=== PATIENT | male | born 1945 | race Caucasian/White ===

== ENCOUNTER 2018-09-19 21:56 | Observation (INO) | payer MEDICAID, OTHER ==
[~2018-09-19] VITALS: Ht 165.1 cm; Wt 70.6 kg
[2018-09-19] MEDS ORDERED: ASPIRIN 81 MG TAB PO STA (22:17)
--- NOTE | 2018-09-19 22:22 | ERD ---
ER Documentation Chief Complaint Chief Complaint referred by pmd for htn. denies pain HPI 72-year-old male with a history of hypertension and diabetes presenting from clinic for chest pain that started around 4 PM today. They did an EKG at the clinic which did not show any acute abnormalities. He was given some pill that he does not know the name of. After that his pain improved. That was just prior to arrival. He states that his chest pain was pressure-like, radiating to his left shoulder and back, with associated shortness of breath and diaphoresis. His pain has been constant for 5 hours until he received that medication. He denies any history of cardiac problems. He is a daily drinker. He is compliant with his medications. ROS All systems reviewed and are negative except as per history of present illness. Allergies Allergies: Coded Allergies: No Known Drug Allergies (Verified Allergy, Unknown, 09/19/18) PMhx/Soc Medical and Surgical Hx: pt denies Medical Hx Hx Cardiac Disorders: Yes (htn, ) Hx Miscellaneous Medical Probl: Yes (Diabetes) Hx Alcohol Use: Yes (Daily) Hx Substance Use: No Hx Tobacco Use: No Smoking Status: Never smoker FmHx Family History: No coronary disease Physical Exam Vitals Vital Signs Date Temp Pulse Resp B/P (MAP) Pulse Ox O2 O2 Flow FiO2 Time Delivery Rate 09/19/18 97 19 154/98 97 Room Air 23:00 (116) 09/19/18 Nasal 22:26 Cannula 09/19/18 97.9 98 20 172/93 99 Room Air 22:13 (119) 09/19/18 97.9 99 20 202/96 99 22:03 (131) Physical Exam Const: No acute distress Head: Atraumatic Eyes: Normal Conjunctiva ENT: Normal External Ears, Nose and Mouth. Neck: Full range of motion. No meningismus. Resp: Clear to auscultation bilaterally Cardio: Regular rate and rhythm, no murmurs. 2+ distal pulses Abd: Soft, non tender, non distended. Normal bowel sounds Skin: No petechiae or rashes Back: No midline or flank tenderness Ext: No cyanosis, or edema Neur: Awake and alert Psych: Normal Mood and Affect Result Diagram: 09/20/18 0613 09/20/18 0614 Results 24 hrs Laboratory Tests Test 09/19/18 22:21 White Blood Count 6.8 10^3/ul Red Blood Count 3.88 10^6/ul Hemoglobin 13.1 g/dl Hematocrit 37.8 % Mean Corpuscular Volume 97.4 fl Mean Corpuscular Hemoglobin 33.8 pg Mean Corpuscular Hemoglobin Concent 34.7 g/dl Red Cell Distribution Width 14.6 % Platelet Count 177 10^3/UL Mean Platelet Volume 8.7 fl Immature Granulocytes % 0.300 % Neutrophils % 63.1 % Lymphocytes % 26.8 % Monocytes % 8.9 % Eosinophils % 0.3 % Basophils % 0.6 % Nucleated Red Blood Cells % 0.0 /100WBC Immature Granulocytes # 0.020 10^3/ul Neutrophils # 4.3 10^3/ul Lymphocytes # 1.8 10^3/ul Monocytes # 0.6 10^3/ul Eosinophils # 0.0 10^3/ul Basophils # 0.0 10^3/ul Nucleated Red Blood Cells # 0.0 10^3/ul Sodium Level 137 mmol/L Potassium Level 3.9 mmol/L Chloride Level 103 mmol/L Carbon Dioxide Level 23 mmol/L Anion Gap 11 Blood Urea Nitrogen 12 mg/dl Creatinine 0.82 mg/dl Est Glomerular Filtrat Rate mL/min mL/min Glucose Level 142 mg/dl Calcium Level 8.4 mg/dl Troponin I < 0.012 ng/ml Current Medications Medications Dose Sig/Prest[place] Start Time Status Last (Trade) Ordered Route PRN Stop Time Admin Dose Reason Admin Aspirin 162 mg ONCE STAT 09/19/18 DC 09/19/18 (Aspirin) PO 22:17 22:25 09/19/18 22:18 Procedures/MDM EMERGENT LABS AND DIAGNOSTIC STUDIES: Lab Results above were reviewed and interpreted by me. CBC: no anemia or evidence of infection CMP: No evidence of clinically significant electrolyte abnormality, acidosis, renal failure, hypoglycemia, liver disease, or biliary obstruction Troponin within normal limits, not indicative of cardiac ischemia 12-lead EKG was interpreted by Daniela Dyson MD: sinus tachycardia at 104 bpm Normal axis Normal intervals No acute ST or T wave changes suggestive of acute ischemia or STEMI. Radiology Results as interpreted by Radiology below were reviewed by Candi Dyson MD: Chest x-ray: No acute abnormalities Initial Nursing notes reviewed. Previous Medical Records requested via the Electronic Health Record. EMERGENCY DEPARTMENT COURSE / MEDICAL DECISION MAKING: Patients symptoms are concerning for a cardiac etiology. Other etiologies considered were PE, aortic dissection, pneumonia, pneumothorax, esophageal rupture. EKG showed no acute ischemia. Initial troponin negative. CXR grossly unremarkable. However patient has an intermediate risk of adverse events. Patient is not safe for discharge and will need inpatient monitoring and further evaluation. Further workup will be deferred to the inpatient team. Accepting Care Team: Current data and ongoing care discussed. Time: Time of admission Primary Provider: Dr. Amos Fernandez Diagnosis: Primary Impression: Chest pain Chest pain type: unspecified Qualified Codes: R07.9 - Chest pain, unspecified Additional Impression: Hypertensive urgency Condition: Stable EKTONYA VELASQUEZ MD Sep 19, 2018 22:22
--- NOTE | 2018-09-19 23:51 | HP ---
Date/Time of Note Date/Time of Note DATE: 09/19/18 TIME: 23:51 Assessment/Plan VTE Prophylaxis SCD applied (from Nsg): Yes Pharmacological prophylaxis: NA/contraindicated Pharm contraindication: low risk/ambulating Lines/Catheters IV Catheter Type (from Nrsg): Saline Lock Assessment/Plan Hospital Course This is a 72-year-old male being admitted to the telemetry floor for observation for: #1. Chest pain: Rule out ACS versus secondary to uncontrolled hypertension. Will check cardiac enzymes x3, the first that was negative. Will check an echocardiogram. Will monitor patient blood pressure closely. Did present with blood pressures in the 200 systolic. I will start him on lisinopril 10 mg p.o. daily. Will need to confirm patient's home medications. #2 hypertension: Patient did present with blood pressures in the 200s, which did subsequently start to improve on their own without intervention. We will start the patient on lisinopril 10 mg p.o. daily Given his underlying history of diabetes mellitus. We will titrate the meds as indicated. #3 diabetes mellitus: We will check a hemoglobin A1c, will need to confirm patient's home medications. mild insulin sliding scale. We will check hemoglobin A 1C, lipid panel, TSH #4 heavy alcohol use: Patient does report that he drinks 4-5 beers on a nightly basis. Currently does not appear to be jittery or anxious. Will give a banana bag, PRN Ativan for any symptoms of withdrawal, thiamine, folate, MVI #5 DVT GI verbalizes: SCDs, no GI prophylaxis indicated Further treatment strategy will be implemented as per the clinical course. Result Diagram: 09/19/181 09/19/18 2221 Results 24hrs Laboratory Tests Test 09/19/18 22:21 White Blood Count 6.8 Red Blood Count 3.88 L Hemoglobin 13.1 L Hematocrit 37.8 L Mean Corpuscular Volume 97.4 Mean Corpuscular Hemoglobin 33.8 H Mean Corpuscular Hemoglobin Concent 34.7 Red Cell Distribution Width 14.6 H Platelet Count 177 Mean Platelet Volume 8.7 Immature Granulocytes % 0.300 Neutrophils % 63.1 Lymphocytes % 26.8 Monocytes % 8.9 Eosinophils % 0.3 Basophils % 0.6 Nucleated Red Blood Cells % 0.0 Immature Granulocytes # 0.020 Neutrophils # 4.3 Lymphocytes # 1.8 Monocytes # 0.6 Eosinophils # 0.0 Basophils # 0.0 Nucleated Red Blood Cells # 0.0 Sodium Level 137 Potassium Level 3.9 Chloride Level 103 Carbon Dioxide Level 23 Anion Gap 11 Blood Urea Nitrogen 12 Creatinine 0.82 Est Glomerular Filtrat Rate mL/min Glucose Level 142 Calcium Level 8.4 Troponin I < 0.012 HPI/ROS Admit Date/Time Admit Date/Time Hx of Present Illness Chief complaint: Chest pain The following history was obtained from the ED physician documentation as well as from the patient. This is a 72-year-old male with a history of hypertension and diabetes presenting from clinic for chest pain that started around 4 PM today. They did an EKG at the clinic which did not show any acute abnormalities. He was given some pill that he does not know the name of. After that his pain improved. That was just prior to arrival. He states that his chest pain was pressure- like, radiating to his left shoulder and back, with associated shortness of breath and diaphoresis. His pain has been constant for 5 hours until he received that medication. . He reports that he takes his medications at home. He does report that he is a daily beer drinker of approximately 5 beers a day. Allergies: NKDA Medications: Unknown, patient unable to remember ROS Const: As per HPI Eyes : No pain discharge or redness or change in visual acuity ENT: No pain, sore throat, congestion, congestion, dysphagia or discharge Respiratory: No shortness of breath, cough, sputum, wheezing, or pleuritic pain Cardiovascular: As per HPI GI : no change in appetite, abdominal pain, nausea, vomiting, diarrhea, constipation, or change in the color his stool Genitourinary: No dysuria, hematuria, flank pain , discharge or CVA tenderness Musculoskeletal: No joint pain, back pain, neck pain, restricted range of motion in neck or joints Skin: No rash, bruising or hives Neuro: No headache, dizziness, syncope, seizure, focal weakness Endocrine: No polyuria, polydipsia, temperature intolerance Psych: No hallucination, depression, anxiety or suicidal ideation PMH/Family/Social Past Medical History Hypertension, diabetes mellitus Medications Current Medications Ondansetron HCl (Zofran Inj) 4 mg ER BRIDGE PRN IV NAUSEA/VOMITING; Start 09/20/18 at 00:00; Stop 09/20/18 at 23:59 Acetaminophen (Tylenol Tab) 650 mg ER BRIDGE PRN PO .MILD PAIN 1-3 OR TEMP; Start 09/20/18 at 00:00; Stop 09/20/18 at 23:59 IV Flush (NS 3 ml) 3 ml PER PROTOCOL IV ; Start 09/20/18 at 00:00; Status UNV Ondansetron HCl (Zofran Inj) 4 mg Q6H PRN IV NAUSEA/VOMITING; Start 09/20/18 at 00:00; Status UNV Aspirin (Aspirin) 81 mg DAILY PO ; Start 09/20/18 at 09:00; Status UNV Nitroglycerin (Nitroglycerin (Sl Tab) 0.4 Mg) 1 tab Q5M PRN SL .CHEST PAIN; Start 09/20/18 at 00:00; Status UNV Acetaminophen (Tylenol Tab) 650 mg Q6H PRN PO .PAIN 1-3 OR TEMP; Start 09/20/18 at 00:00; Status UNV Morphine Sulfate (morphine) 2 mg Q4H PRN IV .PAIN 7-10; Start 09/20/18 at 00:00; Status UNV Docusate Sodium (Colace) 100 mg Q12H PRN PO .CONSTIPATION; Start 09/20/18 at 00:00; Status UNV Bisacodyl (Dulcolax) 5 mg DAILY PRN PO .CONSTIPATION; Start 09/20/18 at 00:00; Status UNV Heparin Sodium (Porcine) (Heparin (5000 Units/1ml)) 5,000 unit Q8 SC ; Start 09/20/18 at 00:00; Status UNV Lisinopril (Zestril) 10 mg ONCE ONCE PO ; Start 09/20/18 at 00:00; Stop 09/20/18 at 00:01; Status UNV Lisinopril (Zestril) 10 mg DAILY PO ; Start 09/20/18 at 09:00; Status UNV Coded Allergies: No Known Drug Allergies (Verified Allergy, Unknown, 09/19/18) Past Surgical History Past Surgical Hx: no surgical history Family History Significant Family History: no pertinent family hx Social History Alcohol Use: heavy Smoking Status: Never smoker Drug Use: none Exam/Review of Systems Vital Signs Vitals Vital Signs Date Temp Pulse Resp B/P (MAP) Pulse Ox O2 O2 Flow FiO2 Time Delivery Rate 09/19/18 Nasal 22:26 Cannula 09/19/18 97.9 98 20 172/93 99 22:13 (119) Exam Exam General: Patient is a pleasant male currently lying in bed in no acute distress HEENT: Atraumatic, normocephalic. The pupils are equal, round and reactive. Extraocular motor are intact Neck: Supple with full range of motion. No rigidity or meningismus Chest: Nontender Lungs: Clear to auscultation bilaterally no crackles rales or wheezing Heart: Normal S1-S2, Regular rhythm and rate. No murmur, S3, or S4 Abdomen: Soft , nontender, nondistended , bowel sounds are present. No guarding no rebound tenderness , No masses or organomegaly. No costovertebral temporal angle mass Extremities: Normal to inspection, no edema no cyanosis Neurologic: Normal mental status, speech normal, cranial nerves II through XII are intact, motor and sensory are intact, Psych: Patient does not appear to be anxious or jittery Additional Comments PROCEDURE: DX Chest 1 View CLINICAL INDICATION: Chest pain. TECHNIQUE: AP Portable chest. COMPARISON: None FINDINGS: Low lung volumes. Normal cardiac mediastinal configuration. Aortic calcified plaque present. No CHF or hilar enlargement. Subsegmental atelectasis at the lung bases. No alveolar consolidation, significant interstitial lung disease or pneumothorax. IMPRESSION: 1. Low lung volumes with minimal bibasilar subsegmental atelectasis. RPTAT: HLRS Physician Faraz Date Time Electronically viewed and signed by Physician Faraz on 09/20/2018 00:39 RS/ CC: TONYA DING MD [phone] 12-lead EKG EKGsinus tachycardia at 104 bpm Normal axis Normal intervals No acute ST or T wave changes suggestive of acute ischemia or STEMI. KAYLA NI Sep 19, 2018 23:51
[2018-09-20] VITALS (13 sets, daily range): BP systolic 168–183; BP diastolic 81–94; PULSE 70–89; RESP 18–20; Ht 165.1 cm; Wt 70.6 kg
[2018-09-20] MEDS ORDERED: NACL 0.9% 3 ML SYG IV SCH
[2018-09-20] MEDS ORDERED: BISACODYL (EC) 5 MG TAB PO PRN
[2018-09-20] MEDS ORDERED: ONDANSETRON 4 MG INJ IV PRN ×2
[2018-09-20] MEDS ORDERED: NITROGLYCERIN (SL) 0.4 MG TAB SL PRN
[2018-09-20] MEDS ORDERED: morphine 2 MG INJ IV PRN
[2018-09-20] MEDS ORDERED: ACETAMINOPHEN 325 MG TAB PO PRN ×2
[2018-09-20] MEDS ORDERED: DOCUSATE SODIUM 100 MG CAP PO PRN
[2018-09-20] MEDS ORDERED: GLUCAGON 1 MG INJ IM PRN (01:00)
[2018-09-20] MEDS ORDERED: DEXTROSE 50% 50 ML SYRINGE IV PRN ×2 (01:00)
[2018-09-20] MEDS ORDERED: GLUCOSE GEL 15 GRAM TUBE PO PRN ×2 (01:00)
[2018-09-20] MEDS ORDERED: GLUCOSE GEL 15 GRAM TUBE BUCCAL PRN (01:00)
[2018-09-20] MEDS: HEPARIN 5,000 UNIT/1 ML VIAL SC SCH ×4 (02:24→22:16)
[2018-09-20] MEDS: ACCU-CHEK XX SCH (02:24)
[2018-09-20] MEDS ORDERED: LORAZEPAM 2 MG INJ IV PRN (04:30)
[2018-09-20] MEDS ORDERED: MULTIVITAMINS 10 ML, THIAMINE 100 MG, FOLIC ACID 1 MG in SOD CHLORIDE 0.9% 1,000 ML IVPB SCH (06:00)
[2018-09-20] MEDS: INSULIN ASPART [NOVOLOG] 3 ML PEN SC SCH ×4 (08:18→20:48)
[2018-09-20] MEDS: ASPIRIN 81 MG TAB PO SCH (08:18)
[2018-09-20] MEDS ORDERED: LISINOPRIL 10 MG TAB PO SCH (09:00)
[2018-09-20] MEDS ORDERED: LISINOPRIL 10 MG TAB PO ONE ×2 (10:00)
[2018-09-20] MEDS ORDERED: POTASSIUM CHLORIDE (SR) 20 MEQ TAB PO STA (11:52)
[2018-09-20] MEDS ORDERED: MAGNESIUM SULFATE 2 GM/50 ML 50 ML IVPB ONE (12:00)
--- NOTE | 2018-09-20 12:16 | PN ---
Date/Time of Note Date/Time of Note DATE: 09/20/18 TIME: 12:16 Assessment/Plan VTE Prophylaxis Risk score (from Ns)>0 risk: 2 SCD applied (from Ns): Yes Pharmacological prophylaxis: NA/contraindicated Pharm contraindication: low risk/ambulating Lines/Catheters [facility] Saline Lock Urinary Cath still in place: No Assessment/Plan Hospital Course SUBJECTIVE: Patient with no further chest pain. No tremors, withdrawals. OBJECTIVE: Vital signs-see below PHYSICAL EXAM: Constitutional: Adequately built,not in acute distress. HEENT: Head atraumatic and normocephalic. Eyes: Extraocular muscles intact. Anicteric sclerae. Pupils equal bilaterally, reactive to light. NECK: Supple without lymph node. CHEST: Clear and good breath sounds equally. No wheezing. No rhonchi. HEART: S1, S2. Regular rate and rhythm. ABDOMEN: Soft/non tender with no rebound tenderness. Bowel sounds were present. EXTREMITIES: No cyanosis, clubbing or edema. NEUROLOGIC: Alert and oriented x3. No focal deficit. No sensory deficit. PSYCHOSOCIAL: No signs of depression. INTEGUMENTARY: No open wounds. ASSESSMENT AND PLAN:72 yo M w/ EtOH abuse,htn,?dm here w/ chest pain... Chest pain, rule out ACS -Cardiology consultation -Aspirin prophylaxis -N.p.o. for possible stress testing Hypertensive urgency -Needs more control, increase lisinopril to 20 mg daily. -Start beta-blockers ?dm -A1c normal. Continue sliding scale insulin -We will try to obtain home medications. EtOH abuse -cont.banana bag. Cessation advised Anemia, likely from alcohol use -Stable. Monitor. Elevated TSH -Add T4 levels DVT prophylaxis: SCDs Disposition: Follow-up cardiology recommendations. Patient was seen in collaboration with Dr. Simon. Result Diagram: 09/20/18 0613 09/20/18 0614 Results 24hrs Laboratory Tests Test 09/19/18 22:21 09/20/18 01:07 09/20/18 02:18 09/20/18 06:13 White Blood Count 6.8 4.8 # Red Blood Count 3.88 L 3.84 L Hemoglobin 13.1 L 12.7 L Hematocrit 37.8 L 36.5 L Mean Corpuscular 97.4 95.1 Volume Mean Corpuscular 33.8 H 33.1 H Hemoglobin Mean Corpuscular 34.7 34.8 Hemoglobin Concent Red Cell 14.6 H 14.4 Distribution Width Platelet Count 177 161 Mean Platelet Volume 8.7 9.4 Immature 0.300 0.400 Granulocytes % Neutrophils % 63.1 56.6 Lymphocytes % 26.8 31.0 Monocytes % 8.9 10.8 Eosinophils % 0.3 0.4 Basophils % 0.6 0.8 Nucleated Red Blood 0.0 0.0 Cells % Immature 0.020 0.020 Granulocytes # Neutrophils # 4.3 2.7 Lymphocytes # 1.8 1.5 Monocytes # 0.6 0.5 Eosinophils # 0.0 0.0 Basophils # 0.0 0.0 Nucleated Red Blood 0.0 0.0 Cells # Sodium Level 137 Potassium Level 3.9 Chloride Level 103 Carbon Dioxide Level 23 Anion Gap 11 Blood Urea Nitrogen 12 Creatinine 0.82 Est Glomerular Filtrat Rate mL/min Glucose Level 142 Calcium Level 8.4 Troponin I < 0.012 < 0.012 Bedside Glucose 124 126 Hemoglobin A1c 5.9 Creatine Kinase 223 H Creatine Kinase 1.7 Index Creatinine Kinase MB 3.72 H (Mass) Test 09/20/18 06:14 09/20/18 08:04 09/20/18 10:08 09/20/18 11:59 Sodium Level 140 Potassium Level 3.4 L Chloride Level 105 Carbon Dioxide Level 24 Anion Gap 11 Blood Urea Nitrogen 8 Creatinine 0.71 Est Glomerular Filtrat Rate mL/min Glucose Level 140 Calcium Level 8.6 Magnesium Level 1.5 L Total Bilirubin 0.6 Direct Bilirubin 0.00 Indirect Bilirubin 0.6 Aspartate Amino 55 H Transf (AST/SGOT) Alanine 36 Aminotransferase (AL T/SGPT) Alkaline Phosphatase 86 Total Protein 7.3 Albumin 4.1 Globulin 3.20 Albumin/Globulin 1.28 Ratio Triglycerides Level 215 H Cholesterol Level 143 LDL Cholesterol, 29 Calculated HDL Cholesterol 71 Cholesterol/HDL 2.0 Ratio Thyroid Stimulating 6.830 H Hormone (TSH) Bedside Glucose 166 129 Creatine Kinase 188 Creatine Kinase 1.7 Index Creatinine Kinase MB 3.24 H (Mass) Troponin I < 0.012 Exam/Review of Systems Exam Vitals Vital Signs Date Temp Pulse Resp B/P (MAP) Pulse Ox O2 O2 Flow FiO2 Time Delivery Rate 09/20/18 98.7 82 18 177/86 96 11:43 (116) 6/25/19 Room Air 01:11 Intake and Output 09/19/18 09/19/18 09/20/18 1515:00 23:00 07:00 IntakeIntake Total 490 ml BalanceBalance 490 ml Results Results 24hrs Laboratory Tests Test 09/19/18 22:21 09/20/18 01:07 09/20/18 02:18 09/20/18 06:13 White Blood Count 6.8 4.8 # Red Blood Count 3.88 L 3.84 L Hemoglobin 13.1 L 12.7 L Hematocrit 37.8 L 36.5 L Mean Corpuscular 97.4 95.1 Volume Mean Corpuscular 33.8 H 33.1 H Hemoglobin Mean Corpuscular 34.7 34.8 Hemoglobin Concent Red Cell 14.6 H 14.4 Distribution Width Platelet Count 177 161 Mean Platelet Volume 8.7 9.4 Immature 0.300 0.400 Granulocytes % Neutrophils % 63.1 56.6 Lymphocytes % 26.8 31.0 Monocytes % 8.9 10.8 Eosinophils % 0.3 0.4 Basophils % 0.6 0.8 Nucleated Red Blood 0.0 0.0 Cells % Immature 0.020 0.020 Granulocytes # Neutrophils # 4.3 2.7 Lymphocytes # 1.8 1.5 Monocytes # 0.6 0.5 Eosinophils # 0.0 0.0 Basophils # 0.0 0.0 Nucleated Red Blood 0.0 0.0 Cells # Sodium Level 137 Potassium Level 3.9 Chloride Level 103 Carbon Dioxide Level 23 Anion Gap 11 Blood Urea Nitrogen 12 Creatinine 0.82 Est Glomerular Filtrat Rate mL/min Glucose Level 142 Calcium Level 8.4 Troponin I < 0.012 < 0.012 Bedside Glucose 124 126 Hemoglobin A1c 5.9 Creatine Kinase 223 H Creatine Kinase 1.7 Index Creatinine Kinase MB 3.72 H (Mass) Test 09/20/18 06:14 09/20/18 08:04 09/20/18 10:08 09/20/18 11:59 Sodium Level 140 Potassium Level 3.4 L Chloride Level 105 Carbon Dioxide Level 24 Anion Gap 11 Blood Urea Nitrogen 8 Creatinine 0.71 Est Glomerular Filtrat Rate mL/min Glucose Level 140 Calcium Level 8.6 Magnesium Level 1.5 L Total Bilirubin 0.6 Direct Bilirubin 0.00 Indirect Bilirubin 0.6 Aspartate Amino 55 H Transf (AST/SGOT) Alanine 36 Aminotransferase (AL T/SGPT) Alkaline Phosphatase 86 Total Protein 7.3 Albumin 4.1 Globulin 3.20 Albumin/Globulin 1.28 Ratio Triglycerides Level 215 H Cholesterol Level 143 LDL Cholesterol, 29 Calculated HDL Cholesterol 71 Cholesterol/HDL 2.0 Ratio Thyroid Stimulating 6.830 H Hormone (TSH) Bedside Glucose 166 129 Creatine Kinase 188 Creatine Kinase 1.7 Index Creatinine Kinase MB 3.24 H (Mass) Troponin I < 0.012 Medications Medication Current Medications IV Flush (NS 3 ml) 3 ml PER PROTOCOL IV ; Start 09/20/18 at 00:00 Ondansetron HCl (Zofran Inj) 4 mg Q6H PRN IV NAUSEA/VOMITING; Start 09/20/18 at 00:00 Aspirin (Aspirin) 81 mg DAILY PO Last administered on 09/20/18at 08:18; Admin Dose 81 MG; Start 09/20/18 at 09:00 Nitroglycerin (Nitroglycerin (Sl Tab) 0.4 Mg) 1 tab Q5M PRN SL .CHEST PAIN; Start 09/20/18 at 00:00 Acetaminophen (Tylenol Tab) 650 mg Q6H PRN PO .PAIN 1-3 OR TEMP; Start 09/20/18 at 00:00 Morphine Sulfate (morphine) 2 mg Q4H PRN IV .PAIN 7-10; Start 09/20/18 at 00:00 Docusate Sodium (Colace) 100 mg Q12H PRN PO .CONSTIPATION; Start 09/20/18 at 00:00 Bisacodyl (Dulcolax) 5 mg DAILY PRN PO .CONSTIPATION; Start 09/20/18 at 00:00 Heparin Sodium (Porcine) (Heparin (5000 Units/1ml)) 5,000 unit Q8 SC Last administered on 09/20/18at 02:24; Admin Dose 5,000 UNIT; Start 09/20/18 at 00:00 Diagnostic Test (Pha) (Accu-Chek) 1 ea 02 XX Last administered on 09/20/18at 02:24; Admin Dose 1 EA; Start 09/20/18 at 02:00 Insulin Aspart (Novolog Insulin Pen) NOVOLOG *MILD* ALGORITHM WITH MEALS BEDTIME SC Last administered on 09/20/18at 08:18; Admin Dose 1 UNIT; Start 09/20/18 at 07:55 Hydralazine HCl (Apresoline) 10 mg Q6 PRN PO ELEVATED BLOOD PRESSURE Last administered on 09/20/18at 08:19; Admin Dose 10 MG; Start 09/20/18 at 00:00 Miscellaneous Information 1 ea NOTE XX ; Start 09/20/18 at 01:00 Glucose (Glutose) 15 gm Q15M PRN PO DECREASED GLUCOSE; Start 09/20/18 at 01:00 Glucose (Glutose) 22.5 gm Q15M PRN PO DECREASED GLUCOSE; Start 09/20/18 at 01:00 Dextrose (D50w Syringe) 25 ml Q15M PRN IV DECREASED GLUCOSE; Start 09/20/18 at 01:00 Dextrose (D50w Syringe) 50 ml Q15M PRN IV DECREASED GLUCOSE; Start 09/20/18 at 01:00 Glucagon (Glucagen) 1 mg Q15M PRN IM DECREASED GLUCOSE; Start 09/20/18 at 01:00 Glucose (Glutose) 15 gm Q15M PRN BUCCAL DECREASED GLUCOSE; Start 09/20/18 at 01:00 Thiamine HCl (Vitamin B1) 100 mg DAILY PO ; Start 09/21/18 at 09:00 Multivitamins Therapeutic (Theragran) 1 tab DAILY PO ; Start 09/21/18 at 09:00 Folic Acid (Folic Acid) 1 mg DAILY PO ; Start 09/21/18 at 09:00 Lorazepam (Ativan) 1 mg Q4H PRN IV CONTROL WITHDRAWAL SYMPTOMS; Start 09/20/18 at 04:30 Lisinopril (Zestril) 20 mg DAILY PO ; Start 09/21/18 at 09:00 Magnesium Sulfate 50 ml @ 25 mls/hr ONCE ONCE IVPB Last administered on 09/20/18at 12:07; Admin Dose 25 MLS/HR; Start 09/20/18 at 12:00; Stop 09/20/18 at 13:59 YOLIE ORTIZ NP Sep 20, 2018 12:16
[2018-09-20] MEDS ORDERED: METOPROLOL 25 MG TAB PO SCH (12:30)
--- NOTE | 2018-09-20 12:47 | CONS ---
Assessment/Plan Assessment/Plan Hospital Course (Demo Recall) Chest pain Palpitation Hypertension History of alcohol use Recommendations: I will change the beta-chitra to Toprol-XL 50 twice daily to control the blood pressure heart rate better Myocardial infarction has been ruled out Lexiscan stress will be done today Thank you LENNY KIMBLE MD [facility] Consultation Date/Type/Reason Admit Date/Time Date of Consultation: Sep 20, 2018 Type of Consult Cardiology Reason for Consultation cp Requesting Provider: YOLIE ORTIZ NP Date/Time of Note DATE: 09/20/18 TIME: 12:44 Hx of Present Illness Interventional cardiology consultation note Chief complaint: cp, palpitations Reason for consult:cp History of present illness: Thank you for this referral. This is a 72-year-old gentleman with history of alcohol use and hypertension who presents emergency room complaining mostly of palpitation. Patient also complained of some left-sided chest pain going to his back. Discussed with his daughter was also translating for me. No exertional chest pain. Brianda has resolved now troponin have been negative he has remained in sinus rhythm Allergies: No known drug allergies Medications were reviewed as per medical reconciliation sheet Family history: No early coronary artery disease Social history: Non-smoker. Positive alcohol. Past medical history: Hypertension Review of system: Patient denies all others except for above-mentioned Past Medical History Medications Current Medications IV Flush (NS 3 ml) 3 ml PER PROTOCOL IV ; Start 09/20/18 at 00:00 Ondansetron HCl (Zofran Inj) 4 mg Q6H PRN IV NAUSEA/VOMITING; Start 09/20/18 at 00:00 Aspirin (Aspirin) 81 mg DAILY PO Last administered on 09/20/18at 08:18; Admin Dose 81 MG; Start 09/20/18 at 09:00 Nitroglycerin (Nitroglycerin (Sl Tab) 0.4 Mg) 1 tab Q5M PRN SL .CHEST PAIN; Start 09/20/18 at 00:00 Acetaminophen (Tylenol Tab) 650 mg Q6H PRN PO .PAIN 1-3 OR TEMP; Start 09/20/18 at 00:00 Morphine Sulfate (morphine) 2 mg Q4H PRN IV .PAIN 7-10; Start 09/20/18 at 00:00 Docusate Sodium (Colace) 100 mg Q12H PRN PO .CONSTIPATION; Start 09/20/18 at 00:00 Bisacodyl (Dulcolax) 5 mg DAILY PRN PO .CONSTIPATION; Start 09/20/18 at 00:00 Heparin Sodium (Porcine) (Heparin (5000 Units/1ml)) 5,000 unit Q8 SC Last administered on 09/20/18at 02:24; Admin Dose 5,000 UNIT; Start 09/20/18 at 00:00 Diagnostic Test (Pha) (Accu-Chek) 1 ea 02 XX Last administered on 09/20/18at 02:24; Admin Dose 1 EA; Start 09/20/18 at 02:00 Insulin Aspart (Novolog Insulin Pen) NOVOLOG *MILD* ALGORITHM WITH MEALS BEDTIME SC Last administered on 09/20/18at 08:18; Admin Dose 1 UNIT; Start 09/20/18 at 07:55 Hydralazine HCl (Apresoline) 10 mg Q6 PRN PO ELEVATED BLOOD PRESSURE Last administered on 09/20/18at 08:19; Admin Dose 10 MG; Start 09/20/18 at 00:00 Miscellaneous Information 1 ea NOTE XX ; Start 09/20/18 at 01:00 Glucose (Glutose) 15 gm Q15M PRN PO DECREASED GLUCOSE; Start 09/20/18 at 01:00 Glucose (Glutose) 22.5 gm Q15M PRN PO DECREASED GLUCOSE; Start 09/20/18 at 01:00 Dextrose (D50w Syringe) 25 ml Q15M PRN IV DECREASED GLUCOSE; Start 09/20/18 at 01:00 Dextrose (D50w Syringe) 50 ml Q15M PRN IV DECREASED GLUCOSE; Start 09/20/18 at 01:00 Glucagon (Glucagen) 1 mg Q15M PRN IM DECREASED GLUCOSE; Start 09/20/18 at 01:00 Glucose (Glutose) 15 gm Q15M PRN BUCCAL DECREASED GLUCOSE; Start 09/20/18 at 01:00 Thiamine HCl (Vitamin B1) 100 mg DAILY PO ; Start 09/21/18 at 09:00 Multivitamins Therapeutic (Theragran) 1 tab DAILY PO ; Start 09/21/18 at 09:00 Folic Acid (Folic Acid) 1 mg DAILY PO ; Start 09/21/18 at 09:00 Lorazepam (Ativan) 1 mg Q4H PRN IV CONTROL WITHDRAWAL SYMPTOMS; Start 09/20/18 at 04:30 Lisinopril (Zestril) 20 mg DAILY PO ; Start 09/21/18 at 09:00 Magnesium Sulfate 50 ml @ 25 mls/hr ONCE ONCE IVPB Last administered on 09/20/18at 12:07; Admin Dose 25 MLS/HR; Start 09/20/18 at 12:00; Stop 09/20/18 at 13:59 Metoprolol Tartrate (Lopressor) 25 mg DAILY PO Last administered on 09/20/18at 12:35; Admin Dose 25 MG; Start 09/20/18 at 12:30 Allergies: Coded Allergies: No Known Drug Allergies (Verified Allergy, Unknown, 09/19/18) Past Surgical History Past Surgical Hx: no surgical history Social History Alcohol Use: heavy Smoking Status: Former smoker Drug Use: none Exam/Review of Systems Vital Signs Vitals Vital Signs Date Temp Pulse Resp B/P (MAP) Pulse Ox O2 O2 Flow FiO2 Time Delivery Rate 09/20/18 98.7 82 18 177/86 96 11:43 (116) 09/20/18 Room Air 01:11 Intake and Output 09/19/18 09/19/18 09/20/18 1515:00 23:00 07:00 IntakeIntake Total 490 ml BalanceBalance 490 ml Exam Exam General: no acute distress HEENT: NC/AT. pupils are equal. round. NECK: NO JVD. no stridor. CV: RRR. systolic murmur; no gallop or rubs. PULM: no wheezing or rhonchi. GI: SOFT, NT, ND, no rebound or guarding Extremity: trace B/L LE edema. no clubbing. neuro: awake and alert, OX3. Psych: calm and pleasant rectal: deferred EKG shows normal sinus rhythm. Poor however progression Labs Result Diagram: 09/20/18 0613 09/20/18 0614 Results 24hrs Laboratory Tests Test 09/19/18 22:21 09/20/18 01:07 09/20/18 02:18 09/20/18 06:13 White Blood Count 6.8 4.8 # Red Blood Count 3.88 L 3.84 L Hemoglobin 13.1 L 12.7 L Hematocrit 37.8 L 36.5 L Mean Corpuscular 97.4 95.1 Volume Mean Corpuscular 33.8 H 33.1 H Hemoglobin Mean Corpuscular 34.7 34.8 Hemoglobin Concent Red Cell 14.6 H 14.4 Distribution Width Platelet Count 177 161 Mean Platelet Volume 8.7 9.4 Immature 0.300 0.400 Granulocytes % Neutrophils % 63.1 56.6 Lymphocytes % 26.8 31.0 Monocytes % 8.9 10.8 Eosinophils % 0.3 0.4 Basophils % 0.6 0.8 Nucleated Red Blood 0.0 0.0 Cells % Immature 0.020 0.020 Granulocytes # Neutrophils # 4.3 2.7 Lymphocytes # 1.8 1.5 Monocytes # 0.6 0.5 Eosinophils # 0.0 0.0 Basophils # 0.0 0.0 Nucleated Red Blood 0.0 0.0 Cells # Sodium Level 137 Potassium Level 3.9 Chloride Level 103 Carbon Dioxide Level 23 Anion Gap 11 Blood Urea Nitrogen 12 Creatinine 0.82 Est Glomerular Filtrat Rate mL/min Glucose Level 142 Calcium Level 8.4 Troponin I < 0.012 < 0.012 Bedside Glucose 124 126 Hemoglobin A1c 5.9 Creatine Kinase 223 H Creatine Kinase 1.7 Index Creatinine Kinase MB 3.72 H (Mass) Test 09/20/18 06:14 09/20/18 08:04 09/20/18 10:08 09/20/18 11:59 Sodium Level 140 Potassium Level 3.4 L Chloride Level 105 Carbon Dioxide Level 24 Anion Gap 11 Blood Urea Nitrogen 8 Creatinine 0.71 Est Glomerular Filtrat Rate mL/min Glucose Level 140 Calcium Level 8.6 Magnesium Level 1.5 L Total Bilirubin 0.6 Direct Bilirubin 0.00 Indirect Bilirubin 0.6 Aspartate Amino 55 H Transf (AST/SGOT) Alanine 36 Aminotransferase (AL T/SGPT) Alkaline Phosphatase 86 Total Protein 7.3 Albumin 4.1 Globulin 3.20 Albumin/Globulin 1.28 Ratio Triglycerides Level 215 H Cholesterol Level 143 LDL Cholesterol, 29 Calculated HDL Cholesterol 71 Cholesterol/HDL 2.0 Ratio Thyroid Stimulating 6.830 H Hormone (TSH) Bedside Glucose 166 129 Creatine Kinase 188 Creatine Kinase 1.7 Index Creatinine Kinase MB 3.24 H (Mass) Troponin I < 0.012 Medications Medications Current Medications IV Flush (NS 3 ml) 3 ml PER PROTOCOL IV ; Start 09/20/18 at 00:00 Ondansetron HCl (Zofran Inj) 4 mg Q6H PRN IV NAUSEA/VOMITING; Start 09/20/18 at 00:00 Aspirin (Aspirin) 81 mg DAILY PO Last administered on 09/20/18at 08:18; Admin Dose 81 MG; Start 09/20/18 at 09:00 Nitroglycerin (Nitroglycerin (Sl Tab) 0.4 Mg) 1 tab Q5M PRN SL .CHEST PAIN; Start 09/20/18 at 00:00 Acetaminophen (Tylenol Tab) 650 mg Q6H PRN PO .PAIN 1-3 OR TEMP; Start 09/20/18 at 00:00 Morphine Sulfate (morphine) 2 mg Q4H PRN IV .PAIN 7-10; Start 09/20/18 at 00:00 Docusate Sodium (Colace) 100 mg Q12H PRN PO .CONSTIPATION; Start 09/20/18 at 00:00 Bisacodyl (Dulcolax) 5 mg DAILY PRN PO .CONSTIPATION; Start 09/20/18 at 00:00 Heparin Sodium (Porcine) (Heparin (5000 Units/1ml)) 5,000 unit Q8 SC Last administered on 09/20/18at 02:24; Admin Dose 5,000 UNIT; Start 09/20/18 at 00:00 Diagnostic Test (Pha) (Accu-Chek) 1 ea 02 XX Last administered on 09/20/18 02:24; Admin Dose 1 EA; Start 09/20/18 at 02:00 Insulin Aspart (Novolog Insulin Pen) NOVOLOG *MILD* ALGORITHM WITH MEALS BEDTIME SC Last administered on 09/20/18 08:18; Admin Dose 1 UNIT; Start 09/20/18 at 07:55 Hydralazine HCl (Apresoline) 10 mg Q6 PRN PO ELEVATED BLOOD PRESSURE Last administered on 09/20/18at 08:19; Admin Dose 10 MG; Start 09/20/18 at 00:00 Miscellaneous Information 1 ea NOTE XX ; Start 09/20/18 at 01:00 Glucose (Glutose) 15 gm Q15M PRN PO DECREASED GLUCOSE; Start 09/20/18 at 01:00 Glucose (Glutose) 22.5 gm Q15M PRN PO DECREASED GLUCOSE; Start 09/20/18 at 01:00 Dextrose (D50w Syringe) 25 ml Q15M PRN IV DECREASED GLUCOSE; Start 09/20/18 at 01:00 Dextrose (D50w Syringe) 50 ml Q15M PRN IV DECREASED GLUCOSE; Start 09/20/18 at 01:00 Glucagon (Glucagen) 1 mg Q15M PRN IM DECREASED GLUCOSE; Start 09/20/18 at 01:00 Glucose (Glutose) 15 gm Q15M PRN BUCCAL DECREASED GLUCOSE; Start 09/20/18 at 01:00 Thiamine HCl (Vitamin B1) 100 mg DAILY PO ; Start 09/21/18 at 09:00 Multivitamins Therapeutic (Theragran) 1 tab DAILY PO ; Start 09/21/18 at 09:00 Folic Acid (Folic Acid) 1 mg DAILY PO ; Start 09/21/18 at 09:00 Lorazepam (Ativan) 1 mg Q4H PRN IV CONTROL WITHDRAWAL SYMPTOMS; Start 09/20/18 at 04:30 Lisinopril (Zestril) 20 mg DAILY PO ; Start 09/21/18 at 09:00 Magnesium Sulfate 50 ml @ 25 mls/hr ONCE ONCE IVPB Last administered on 09/20/18at 12:07; Admin Dose 25 MLS/HR; Start 09/20/18 at 12:00; Stop 09/20/18 at 13:59 Metoprolol Tartrate (Lopressor) 25 mg DAILY PO Last administered on 09/20/18at 12:35; Admin Dose 25 MG; Start 09/20/18 at 12:30 LENNY KIMBLE MD Sep 20, 2018 12:47
[2018-09-20] MEDS: METOPROLOL (XL) 50 MG TAB PO SCH ×2 (13:00→20:48)
[2018-09-20] MEDS ORDERED: REGADENOSON 0.4 MG/5 ML SYG ONE (13:23)
--- NOTE | 2018-09-20 14:01 | RADRPT ---
Echocardiogram Report Patient Name: JOHANNE CRUMPPatient ID: [id number] : 1945 (72y 10m)Study Date: 09/20/2018 8:40:16 AM Gender: MAccession #: [id number] Tech: Maye Varner [facility] Location: [facility] Ref.Physician: KAYLA NI Height(Cm): BSA: Weight(Kg): Quality: AdequateOrder Physician: KAYLA NI Account #: Procedures: Echocardiographic Report: Transthoracic echocardiogram with complete 2D, M-Mode, and doppler examination. Indications: Chest Pain. Measurements: 2D/M Mode Doppler Measurement Value Normal Range Measurement Value Normal Range LVIDd 2D 5.3 [ 4.2 - 5.8 ] cm AV Peak Nikhil 1.6 [ 100.0 - 170.0 ] cm/sec LVIDs 2D 2.8 [ 2.5 - 4.0 ] cm AV Peak PG 10.0 [ 2.0 - 9.0 ] mmHg LVPWd 2D 1.0 [ 0.6 - 1.0 ] cm LVOT Peak Nikhil 1.0 [ 70.0 - 110.0 ] cm/sec IVSd 2D 1.0 [ 0.6 - 1.0 ] cm LVOT Peak PG 4.0 [ 2.0 - 6.0 ] mmHg IVS/LVPW 2D 1.0 ratio MV E Peak Nikhil 0.7 [ 60.0 - 130.0 ] cm/sec AoR Diam 2D 2.9 [ 2.6 - 3.4 ] cm MV A Peak Nikhil 1.4 [ 100.0 - 120.0 ] cm/sec LA/Ao 2D 1 ratio MV E/A 0.5 [ 0.8 - 1.5 ] ratio LA Dimen 2D 3.9 [ 3.0 - 4.0 ] cm MV Decel Time 113 [ 104 - 258 ] msec Lat E` Nikhil 0.1 [ 10.0 - 15.0 ] cm/sec MV E/A 0.5 [ 0.8 - 1.5 ] ratio TR Peak Nikhil 2.8 [ 100.0 - 280.0 ] cm/sec TR Peak PG 32.0 mmHg RVSP 42.0 [ 10.0 - 36.0 ] mmHg RA Pressure 10.0 mmHg Findings: Left Ventricle: Normal left ventricular systolic function. Normal left ventricular cavity size. Normal left ventricular wall thickness. Ejection fraction is visually estimated at 60 %. Tissue Doppler/Mitral Doppler indices are consistent with impaired relaxation (Stage I diastolic dysfunction). Right Ventricle: Normal right ventricular size. Normal right ventricular systolic function. Left Atrium: The left atrium is normal in size. Right Atrium: The right atrium is normal in size. Mitral Valve: Normal appearance and function of the mitral valve with trace physiologic regurgitation. Aortic Valve: No significant aortic stenosis or insufficiency. Aortic cusps appear mildly calcified. Tricuspid Valve: Normal appearance and function of the tricuspid valve with trace physiologic regurgitation. Normal right ventricular systolic pressure. The estimated Peak RVSP is 42 mmHg. Pulmonic Valve: Pulmonic valve not well visualized. Pericardium: Normal pericardium with no significant pericardial effusion. Aorta: Normal aortic root. IVC: Normal size and normal respiratory collapse consistent with normal right atrial pressure. Conclusions: Normal left ventricular systolic function. Normal left ventricular cavity size. Normal left ventricular wall thickness. Ejection fraction is visually estimated at 60 %. Tissue Doppler/Mitral Doppler indices are consistent with impaired relaxation (Stage I diastolic dysfunction). Normal appearance and function of the mitral valve with trace physiologic regurgitation. No significant aortic stenosis or insufficiency. Aortic cusps appear mildly calcified. Normal appearance and function of the tricuspid valve with trace physiologic regurgitation. Normal right ventricular systolic pressure. The estimated Peak RVSP is 42 mmHg. Electronically Signed By: Armin Galeas 2018-09-20 14:00:05 PDT
[2018-09-20] MEDS ORDERED: METF-849 PO (14:46)
[2018-09-20] MEDS ORDERED: BENA20TA4 PO (14:47)
[2018-09-20] MEDS ORDERED: ENALAPRILAT 1.25 MG INJ IV ONE (17:30)
[2018-09-21] VITALS (10 sets, daily range): BP systolic 136–188; BP diastolic 70–92; PULSE 64–89; RESP 20
[2018-09-21] MEDS: ACCU-CHEK XX SCH (02:46)
[2018-09-21] MEDS: HEPARIN 5,000 UNIT/1 ML VIAL SC SCH ×2 (06:10→14:00)
[2018-09-21] MEDS: INSULIN ASPART [NOVOLOG] 3 ML PEN SC SCH ×2 (07:55→12:35)
[2018-09-21] MEDS: ASPIRIN 81 MG TAB PO SCH (08:05)
--- NOTE | 2018-09-21 08:07 | CONS ---
Consult Date/Type/Reason Admit Date/Time Sep 19, 2018 at 23:56 Initial Consult Date 09/20/18 Requesting Provider: YOLIE ORTIZ NP Date/Time of Note DATE: 09/21/18 TIME: 08:06 Subjective cv follow up S No chest pain or pressure no palpitation wants to go home. Telemetry was revi ewed patient has been sinus Objective: General: no acute distress HEENT: NC/AT. pupils are equal. round. NECK: NO JVD. no stridor. CV: RRR. systolic murmur; no gallop or rubs. PULM: no wheezing or rhonchi. GI: SOFT, NT, ND, no rebound or guarding Extremity: trace B/L LE edema. no clubbing. neuro: awake and alert, OX3. Psych: calm and pleasant rectal: deferred : normal Echo and Lexiscan result was reviewed see the chart Objective Vitals Vital Signs Date Temp Pulse Resp B/P (MAP) Pulse Ox O2 O2 Flow FiO2 Time Delivery Rate 09/21/18 98.1 75 20 188/90 96 Room Air 07:53 (122) Intake and Output 09/20/18 09/20/18 09/21/18 1515:00 23:00 07:00 IntakeIntake Total 240 ml 240 ml 500 ml OutputOutput Total 1 ml BalanceBalance 239 ml 240 ml 500 ml Results/Medications Result Diagram: 09/20/18 0613 09/21/18 0555 Results 24 hrs Laboratory Tests Test 09/20/18 10:08 09/20/18 11:59 09/20/18 17:23 09/20/18 20:40 Creatine Kinase 188 Creatine Kinase 1.7 Index Creatinine Kinase MB 3.24 H (Mass) Troponin I < 0.012 Bedside Glucose 129 147 140 Test 09/21/18 02:41 09/21/18 05:55 09/21/18 08:04 Bedside Glucose 129 131 Sodium Level 141 Potassium Level 4.2 Chloride Level 110 Carbon Dioxide Level 22 Anion Gap 9 Blood Urea Nitrogen 8 Creatinine 0.76 Est Glomerular Filtrat Rate mL/min Glucose Level 139 Calcium Level 9.0 Home Meds Reported Medications Benazepril Hcl* (Benazepril Hcl*) 20 Mg Tablet, 20 MG PO DAILY, #30 TAB 09/20/18 Metformin* (Glucophage*) 500 Mg Tab, 500 MG PO BID, #30 TAB 09/20/18 Medications Current Medications IV Flush (NS 3 ml) 3 ml PER PROTOCOL IV ; Start 09/20/18 at 00:00 Ondansetron HCl (Zofran Inj) 4 mg Q6H PRN IV NAUSEA/VOMITING; Start 09/20/18 at 00:00 Aspirin (Aspirin) 81 mg DAILY PO Last administered on 09/20/18at 08:18; Admin Dose 81 MG; Start 09/20/18 at 09:00 Nitroglycerin (Nitroglycerin (Sl Tab) 0.4 Mg) 1 tab Q5M PRN SL .CHEST PAIN; Start 09/20/18 at 00:00 Acetaminophen (Tylenol Tab) 650 mg Q6H PRN PO .PAIN 1-3 OR TEMP; Start 09/20/18 at 00:00 Morphine Sulfate (morphine) 2 mg Q4H PRN IV .PAIN 7-10; Start 09/20/18 at 00:00 Docusate Sodium (Colace) 100 mg Q12H PRN PO .CONSTIPATION; Start 09/20/18 at 00:00 Bisacodyl (Dulcolax) 5 mg DAILY PRN PO .CONSTIPATION; Start 09/20/18 at 00:00 Heparin Sodium (Porcine) (Heparin (5000 Units/1ml)) 5,000 unit Q8 SC Last administered on 09/21/18at 06:10; Admin Dose 5,000 UNIT; Start 09/20/18 at 00:00 Diagnostic Test (Pha) (Accu-Chek) 1 ea 02 XX Last administered on 09/21/18at 02:46; Admin Dose 1 EA; Start 09/20/18 at 02:00 Insulin Aspart (Novolog Insulin Pen) NOVOLOG *MILD* ALGORITHM WITH MEALS BEDTIME SC Last administered on 09/20/18at 17:24; Admin Dose 1 UNIT; Start 09/20/18 at 07:55 Hydralazine HCl (Apresoline) 10 mg Q6 PRN PO ELEVATED BLOOD PRESSURE Last administered on 09/20/18at 17:21; Admin Dose 10 MG; Start 09/20/18 at 00:00 Miscellaneous Information 1 ea NOTE XX ; Start 09/20/18 at 01:00 Glucose (Glutose) 15 gm Q15M PRN PO DECREASED GLUCOSE; Start 09/20/18 at 01:00 Glucose (Glutose) 22.5 gm Q15M PRN PO DECREASED GLUCOSE; Start 09/20/18 at 01:00 Dextrose (D50w Syringe) 25 ml Q15M PRN IV DECREASED GLUCOSE; Start 09/20/18 at 01:00 Dextrose (D50w Syringe) 50 ml Q15M PRN IV DECREASED GLUCOSE; Start 09/20/18 at 01:00 Glucagon (Glucagen) 1 mg Q15M PRN IM DECREASED GLUCOSE; Start 09/20/18 at 01:00 Glucose (Glutose) 15 gm Q15M PRN BUCCAL DECREASED GLUCOSE; Start 09/20/18 at 01:00 Thiamine HCl (Vitamin B1) 100 mg DAILY PO ; Start 09/21/18 at 09:00 Multivitamins Therapeutic (Theragran) 1 tab DAILY PO ; Start 09/21/18 at 09:00 Folic Acid (Folic Acid) 1 mg DAILY PO ; Start 09/21/18 at 09:00 Lorazepam (Ativan) 1 mg Q4H PRN IV CONTROL WITHDRAWAL SYMPTOMS; Start 09/20/18 at 04:30 Lisinopril (Zestril) 20 mg DAILY PO ; Start 09/21/18 at 09:00 Carvedilol (Coreg) 12.5 mg BID PO ; Start 09/21/18 at 09:00 Assessment/Plan Hospital Course (Demo Recall) Chest pain Palpitation Hypertension History of alcohol use mild DM; controlled on metformin Recommendations: I will change the beta-chitra tocoreg 12.5 bid cont MICHELE Myocardial infarction has been ruled out AND STRESS TEST DID NOT SHOW ISCHEMIA OK FOR DC will need outpt follow up Thank you LENNY KIMBLE MD [facility] LENNY KIMBLE MD Sep 21, 2018 08:07
[2018-09-21] MEDS ORDERED: THIAMINE 100 MG TAB PO SCH (09:00)
[2018-09-21] MEDS ORDERED: MULTIVITAMINS THERAPEUTIC TAB PO SCH (09:00)
[2018-09-21] MEDS ORDERED: FOLIC ACID 1 MG TAB PO SCH (09:00)
[2018-09-21] MEDS ORDERED: LISINOPRIL 20 MG TAB PO SCH (09:00)
--- NOTE | 2018-09-21 12:37 | PDOCDIS ---
Discharge Instructions CONDITION [id number] Patient Condition: [id number] Stable HOME CARE INSTRUCTIONS: Frank Your diet recommendation is: [id number] Carbohydrate controlled/low-cholesterol diet FOLLOW UP/APPOINTMENTS Follow-up Plan Follow-up with primary care physician in 1 week YOLIE ORTIZ NP Sep 21, 2018 12:37
[2018-09-21] MEDS ORDERED: CARV12.579 PO (12:39)
[2018-09-21] MEDS ORDERED: THIA100T56 PO (12:39)
[2018-09-21] MEDS ORDERED: FOLI-49 PO (12:39)
--- NOTE | 2018-09-21 12:40 | DS ---
Date/Time of Note Date/Time of Note DATE: 09/21/18 TIME: 12:40 Discharge Summary Admission/Discharge Info Admit Date/Time Sep 19, 2018 at 23:56 Discharge Date/Time Hospital Course SUBJECTIVE: Patient with no further chest pain. No tremors, withdrawals. OBJECTIVE: Vital signs-see below PHYSICAL EXAM: Constitutional: Adequately built,not in acute distress. HEENT: Head atraumatic and normocephalic. Eyes: Extraocular muscles intact. Anicteric sclerae. Pupils equal bilaterally, reactive to light. NECK: Supple without lymph node. CHEST: Clear and good breath sounds equally. No wheezing. No rhonchi. HEART: S1, S2. Regular rate and rhythm. ABDOMEN: Soft/non tender with no rebound tenderness. Bowel sounds were present. EXTREMITIES: No cyanosis, clubbing or edema. NEUROLOGIC: Alert and oriented x3. No focal deficit. No sensory deficit. PSYCHOSOCIAL: No signs of depression. INTEGUMENTARY: No open wounds. ASSESSMENT AND PLAN:72 yo M w/ EtOH abuse,htn,?dm here w/ chest pain... Chest pain, rule out ACS -Cardiology consultation -Aspirin prophylaxis -N.p.o. for possible stress testing Hypertensive urgency -Needs more control, increase lisinopril to 20 mg daily. -Start beta-blockers ?dm -A1c normal. Continue sliding scale insulin -We will try to obtain home medications. EtOH abuse -cont.banana bag. Cessation advised Anemia, likely from alcohol use -Stable. Monitor. Elevated TSH -Add T4 levels DVT prophylaxis: SCDs Disposition: Follow-up cardiology recommendations. Patient was seen in collaboration with Dr. Simon. Home Meds Active Scripts Thiamine* (Vitamin B-1*) 100 Mg Tablet, 100 MG PO DAILY, #30 TAB Prov:ORTIZ,YOLIE V. REPRODUCTION TECHNICIAN 09/21/18 Folic Acid* (Folic Acid*) 1 Mg Tablet, 1 MG PO DAILY, #30 TAB Prov:ORTIZ,YOLIE V. REPRODUCTION TECHNICIAN 09/21/18 Carvedilol* (Carvedilol*) 12.5 Mg Tablet, 12.5 MG PO BID, #60 TAB Prov:ORTIZ,YOLIE V. REPRODUCTION TECHNICIAN 09/21/18 Reported Medications Benazepril Hcl* (Benazepril Hcl*) 20 Mg Tablet, 20 MG PO DAILY, #30 TAB 09/20/18 Metformin* (Glucophage*) 500 Mg Tab, 500 MG PO BID, #30 TAB 09/20/18 Follow-up Plan Follow-up with primary care physician in 1 week Primary Care Provider Care Physician No Primary Pending Labs Laboratory Tests Test 09/20/18 17:23 09/20/18 20:40 09/21/18 02:41 09/21/18 05:55 Bedside 147 140 129 Glucose mg/dL (70-220) mg/dL (70-220) mg/dL (70-220) Sodium Level 141 mmol/L (135-14 4) Potassium 4.2 Level mmol/L (3.5-5. 1) Chloride Level 110 mmol/L (97-110 ) Carbon Dioxide 22 Level mmol/L (21-31) Anion Gap 9 (5-13) Blood Urea 8 mg/dl (7-20) Nitrogen Creatinine 0.76 mg/dl (0.61-1. 24) Est Glomerular mL/min (>60) Filtrat Rate mL/min Glucose Level 139 mg/dl (70-220) Calcium Level 9.0 mg/dl (8.4-10. 2) Test 09/21/18 08:04 09/21/18 12:34 Bedside 131 153 Glucose mg/dL (70-220) mg/dL (70-220) YOLIE ORTIZ NP Sep 21, 2018 12:40
--- NOTE | 2018-09-21 15:22 | DS ---
Date/Time of Note Date/Time of Note DATE: 09/21/18 TIME: 15:19 Discharge Summary Admission/Discharge Info Admit Date/Time Sep 19, 2018 at 23:56 Discharge Date/Time Sep 21, 2018 at 15:05 Discharge Diagnosis Chest pain, likely secondary to hypertensive urgency. Resolved. ACS ruled out. Hypertension DM2 EtOH abuse Anemia, likely from alcohol use Subclinical hypothyroidism Patient Condition: Stable Procedures 09/20/2018: Lexiscan myocardial perfusion study: IMPRESSION: 1. No evidence of stress-induced ischemia. 2. No wall motion abnormalities. 3. The left ventricle ejection fraction at stress is 50%. A call report was made to Dr. Galeas at 04:20 p.m. on September 20, 2018 09/20/2018: 2D echocardiogram: Conclusions: Normal left ventricular systolic function. Normal left ventricular cavity size. Normal left ventricular wall thickness. Ejection fraction is visually estimated at 60 %. Tissue Doppler/Mitral Doppler indices are consistent with impaired relaxation (Stage I diastolic dysfunction). Normal appearance and function of the mitral valve with trace physiologic regurgitation. No significant aortic stenosis or insufficiency. Aortic cusps appear mildly calcified. Normal appearance and function of the tricuspid valve with trace physiologic regurgitation. Normal right ventricular systolic pressure. The estimated Peak RVSP is 42 mmHg. Electronically Signed By: Armin Galeas 2018-09-20 14:00:05 PDT Hospital Course 72 yo M w/ EtOH abuse,htn,dm admitted with chest pain and discomfort. Patient was ruled out for acute coronary syndrome with serial troponin and EKG. Patient also had cardiology follow-up and underwent cardiac stress testing on 09/20/2018 with no evidence of reversible ischemia. Patient with good ejection fraction. He was noted with hypertension requiring addition of Coreg 12.5 mg twice daily. He was continued on MICHELE inhibitor. Blood pressure stabilized. Patient did not have any further chest pain. Most likely cause of chest pain is likely secondary to hypertensive urgency. Patient was continued on home medication for underlying comorbidities. He was given thiamine supplementation/banana bag for EtOH abuse. He was not in any withdrawals. Patient was counseled on cessation of alcohol use. He was also noted with elevated TSH with normal T4 level indicating subclinical hypothyroidism which can be monitored as outpatient. At this time, no further inpatient work-up indicated. Patient is eager to be discharged home. He is stable for discharge with outpatient follow-up. Approximately 60-minute was spent in coordinating the discharge on this patient. Patient was seen in collaboration with Dr. Simon Currie Meds Active Scripts Thiamine* (Vitamin B-1*) 100 Mg Tablet, 100 MG PO DAILY, #30 TAB Prov:YOLIE ORTIZ [employer] 09/21/18 Folic Acid* (Folic Acid*) 1 Mg Tablet, 1 MG PO DAILY, #30 TAB Prov:VANESSA ORTIZA [employer] TECH[employer]ICIAN 09/21/18 Carvedilol* (Carvedilol*) 12.5 Mg Tablet, 12.5 MG PO BID, #60 TAB Prov:YOLIE ORTIZ [employer] TECH[employer]ICIAN 09/21/18 Reported Medications Benazepril Hcl* (Benazepril Hcl*) 20 Mg Tablet, 20 MG PO DAILY, #30 TAB 09/20/18 Metformin* (Glucophage*) 500 Mg Tab, 500 MG PO BID, #30 TAB 09/20/18 Follow-up Plan Follow-up with primary care physician in 1 week Primary Care Provider Care Physician No Primary Pending Labs Laboratory Tests Test 09/20/18 17:23 09/20/18 20:40 09/21/18 02:41 09/21/18 05:55 Bedside 147 140 129 Glucose mg/dL (70-220) mg/dL (70-220) mg/dL (70-220) Sodium Level 141 mmol/L (135-14 4) Potassium 4.2 Level mmol/L (3.5-5. 1) Chloride Level 110 mmol/L (97-110 ) Carbon Dioxide 22 Level mmol/L (21-31) Anion Gap 9 (5-13) Blood Urea 8 mg/dl (7-20) Nitrogen Creatinine 0.76 mg/dl (0.61-1. 24) Est Glomerular mL/min (>60) Filtrat Rate mL/min Glucose Level 139 mg/dl (70-220) Calcium Level 9.0 mg/dl (8.4-10. 2) Test 09/21/18 08:04 09/21/18 12:34 Bedside 131 153 Glucose mg/dL (70-220) mg/dL (70-220) YOLIE ORTIZ NP Sep 21, 2018 15:22
== END 2018-09-21 15:05 | disposition home or self-care (01) ==
LOC: E/R 21:56 → TEL 23:56
PROVIDERS: ADMIT Family Medicine; ATTEND Family Medicine
DX: R07.9 Chest pain, unspecified (principal); I10 Essential (primary) hypertension; E11.9 Type 2 diabetes mellitus without complications; F10.10 Alcohol abuse, uncomplicated; Z86.718 Personal history of other venous thrombosis and embolism; D64.9 Anemia, unspecified; E03.9 Hypothyroidism, unspecified
CPT/HCPCS: 36415; 71045; 78452; 80048; 80053; 80061; 82043; 82550; 82553; 82962; 83036; 83735; 84439; 84443; 84484; 85025; 93005; 93017; 93306; A9500; A9505; J1644; J1815; J2785; J3411; J3475; J7030; Z7500; Z7502; Z7610; G0378